=== PATIENT | female | born 1990 | race Caucasian/White ===

== ENCOUNTER → 2022-08-05 | Outpatient (CLI) | payer BC ==
--- NOTE | 2022-08-05 19:02 | CT ---
EXAMINATION TYPE: CT abdomen pelvis w con CT DLP: 764.30 mGycm, Automated exposure control for dose reduction was used. DATE OF EXAM: 08/05/2022 6:51 PM COMPARISON: CT abdomen pelvis most recent from CLINICAL INDICATION:Female, 32 years old with history of R10.32 LEFT LOWER QUADRANT PAIN R19.7 DIARRH EA; LLQ pain, diarrhea Stat hold and call TECHNIQUE: Axial CT of the abdomen and pelvis. Sagittal and coronal reformats were created on a [employer] workstation. Contrast used:100 mL of Isovue 300 with IV Contrast, Oral contrast used: with Oral Contrast FINDINGS: LOWER CHEST: Unremarkable ABDOMEN LIVER: Diffusely hypoattenuating parenchyma. GALLBLADDER AND BILE DUCTS: The gallbladder is surgically absent. PANCREAS: Unremarkable. SPLEEN: Small splenule is present. ADRENAL GLANDS: Unremarkable. KIDNEYS AND URETERS: No evidence of hydronephrosis or renal calculus. The ureters are unremarkable. PELVIS BLADDER: Unremarkable REPRODUCTIVE: Corpus luteum on the right noted. ABDOMEN & PELVIS STOMACH AND BOWEL: Moderate stool burden throughout the colon. No evidence of bowel obstruction. Appe ndix is normal. PERITONEUM: No evidence of pneumoperitoneum or free fluid. VASCULATURE: No evidence of aortic aneurysm. MUSCULOSKELETAL: No acute osseous abnormalities LYMPH NODES: No gross evidence for lymphadenopathy. SOFT TISSUE/ABDOMINAL WALL: Fat-containing umbilical hernia. IMPRESSION: 1. No evidence for acute intra-abdominal process. 2. Moderate stool burden in the colon. 3. Hepatic steatosis. 4. Fat-containing umbilical hernia.
== END | disposition home or self-care (01) ==
LOC: RADCTMAIN 16:49
PROVIDERS: ATTEND Family Medicine
DX: K76.0 Fatty (change of) liver, not elsewhere classified (principal); K42.9 Umbilical hernia without obstruction or gangrene
CPT/HCPCS: 74177; Q9967

== ENCOUNTER 2022-11-06 08:54 | Day surgery (SDC) | payer BC ==
[2022-11-04 15:06] VITALS: BMI 29.2
[~2022-11-06 08:54] MED LIST: LACTATED RINGERS 1,000 ML IV SCH; LIDOCAINE 1% (10MG/ML) FOR IV START INTRADERMA PRN
[2022-11-06 09:36] VITALS: RESP 16; TEMP 98.4
[2022-11-06] MEDS ORDERED: LIDOCAINE 2% INJ 20 MG/ML (2 ML VIAL) ONE (10:06)
[2022-11-06] MEDS ORDERED: PROPOFOL 10 MG/ML 20 ML VIAL IV ONE (10:06)
--- NOTE | 2022-11-06 10:27 | P.PCN ---
Date of Procedure: 11/06/22 Procedure(s) Performed: BRIEF HISTORY: Patient is a 32-year-old pleasant female scheduled for an elective colonoscopy as a part of evaluation of abdominal pain and change in bowel habits for the last 10 years duration. PROCEDURE PERFORMED: Colonoscopy. PREOPERATIVE DIAGNOSIS: Lower abdominal pain and change in bowel habits. IV sedation per Anesthesia. PROCEDURE: After informed consent was obtained, the patient, was brought into the endoscopy unit. IV sedation was administered by Anesthesia under continuous monitoring. Digital rectal examination was normal. Initially the Olympus CF-160 flexible video colonoscope was then inserted in the rectum, gradually advanced into the cecum without any difficulty. Careful examination was performed as the scope was gradually being withdrawn. Ileocecal valve and the appendiceal orifice were visualized and appeared normal. Prep was excellent. Terminal ileum was intubated and 20 cm visualized appeared normal Mucosa of the cecum, ascending colon, transverse colon, descending colon, sigmoid colon, and rectum appeared normal. Retroflexion was performed in the rectum and no lesions were seen. The patient tolerated the procedure well. IMPRESSION: Normal-appearing colon from rectum to cecum with no evidence of colorectal neoplasia . Normal-appearing terminal ileum. RECOMMENDATIONS: Findings of this examination were discussed with the patient as well as a family. She was advised to be a high-fiber diet and take fiber supplements a regular basis. Use osmotic laxatives as needed for the chronic constipation..
[2022-11-06 10:52] VITALS: BP 99/61; PULSE 71
== END 2022-11-06 11:33 | disposition home or self-care (01) ==
LOC: ORWHC2ENDO 08:54
PROVIDERS: ATTEND Internal Medicine Gastroenterology
DX: R19.4 Change in bowel habit (principal); R10.30 Lower abdominal pain, unspecified; F39 Unspecified mood [affective] disorder; Z79.899 Other long term (current) drug therapy
CPT/HCPCS: 84703; 45378; J2704; J2001

== ENCOUNTER 2023-10-30 00:08 | Inpatient (IN) | payer BC ==
[2023-10-30] MEDS ORDERED: TERBUTALINE 1 MG/ML VIAL SQ PRN (00:15)
[2023-10-30] MEDS ORDERED: METHYLERGONOVINE 0.2 MG/ML 1 ML AMP IM PRN ×2 (00:15→00:46)
[2023-10-30] MEDS ORDERED: LIDOCAINE 0.5% (PF) 5 MG/ML (50 ML SDV) SQ PRN (00:15)
[2023-10-30] MEDS ORDERED: AMPICILLIN 2,000 MG in SODIUM CHLORIDE 0.9% 100 ML IVPB STA (00:15)
[2023-10-30] MEDS ORDERED: CARBOPROST TROMETHAMINE 250 MCG/ML 1 ML AMP IM PRN ×2 (00:15→00:46)
[2023-10-30] MEDS ORDERED: miSOPROStoL 200 MCG TAB PO PRN ×2 (00:15→00:46)
[2023-10-30] MEDS ORDERED: TRANEXAMIC 1,000 MG/100ML-NACL 1,000 MG in EMPTY BAG 1 BAG IV PRN ×2 (00:15→00:46)
[2023-10-30] MEDS ORDERED: OXYTOCIN 10 UNIT/ML 1 ML VIAL IM PRN ×2 (00:15→00:46)
[2023-10-30 00:24] LABS: Basophils % (A) 0 %; Eosinophils # (A) 0.2 k/uL (0-0.7); Eosinophils % (A) 2 %; HCT 37.1 % (34.0-46.0); Lymphocytes # (A) 1.9 k/uL (1.0-4.8); Lymphocytes % (A) 17 %; MCH 32.8 pg (25.0-35.0); MCV 93.9 fL (80.0-100.0); Mean Platelet Volume 8.2; Monocytes # (A) 0.5 k/uL (0-1.0); Monocytes % (A) 5 %; Neutrophils # (A) 8.3 k/uL (1.3-7.7); Neutrophils % (A) 75 %; Platelet Count 207 k/uL (150-450); RBC 3.95 m/uL (3.80-5.40); RDW 13.5 % (11.5-15.5); WBC 11.1 k/uL (3.8-10.6)
[2023-10-30] MEDS: BETAMET ACET-BETAMETH SOD PHOS 6 MG/ML MDV IM SCH ×2 (00:29→20:29)
[2023-10-30] MEDS: LACTATED RINGERS 1,000 ML IV SCH ×2 (00:30→02:32)
[2023-10-30] MEDS ORDERED: CITRIC ACID-SODIUM CITRATE 15 ML CUP PO ONE (00:46)
--- NOTE | 2023-10-30 00:52 | P.HPOB ---
History of Present Illness H&P Date: 10/30/23 Chief Complaint: labor 33 year old presents at 32 weeks 4 days in active labor. Her cervix is 5/100/-2. She is elida every few minutes and heart tones are category 1. Fetus is in breech presentation. Review of Systems All systems: negative Constitutional: Denies chills, Denies fever Eyes: denies blurred vision, denies pain Ears, nose, mouth and throat: Denies headache, Denies sore throat Cardiovascular: Denies chest pain, Denies shortness of breath Respiratory: Denies cough Gastrointestinal: Denies abdominal pain, Denies diarrhea, Denies nausea, Denies vomiting Genitourinary: Denies dysuria, Denies hematuria Musculoskeletal: Denies myalgias Integumentary: Denies pruritus, Denies rash Neurological: Denies numbness, Denies weakness Psychiatric: Denies anxiety, Denies depression Endocrine: Denies fatigue, Denies weight change Past Medical History Past Medical History: GERD/Reflux Additional Past Medical History / Comment(s): MIGAINE HEADACHES, CERVICAL CANCER , History of Any Multi-Drug Resistant Organisms: None Reported Past Surgical History: Cholecystectomy Additional Past Surgical History / Comment(s): CERVICAL BIOPSY WITH FOLLOWUP, 4 WISDOM TEETH EXTRACTIONS , EGD Past Anesthesia/Blood Transfusion Reactions: No Reported Reaction, Motion Sickness Past Psychological History: Anxiety, Depression Smoking Status: Never smoker Past Alcohol Use History: None Reported Past Drug Use History: None Reported - Past Family History Mother Family Medical History: No Reported History Medications and Allergies Home Medications Medication Instructions Recorded Confirmed Type Vit No.179/Iron/Folic 1 tab PO DAILY 11/04/22 03/14/23 History [ Tablet] Sertraline [Zoloft] 100 mg PO DAILY 11/04/22 03/14/23 History Allergies Allergy/AdvReac Type Severity Reaction Status Date / Time No Known Allergies Allergy Verified 03/14/23 14:54 Exam Osteopathic Statement: *. No significant issues noted on an osteopathic structural exam other than those noted in the History and Physical/Consult. Intake and Output 10/29/23 10/29/23 10/30/23 14:59 22:59 06:59 Other: Weight 77.111 kg Heart: Regular rate and rhythm Lungs: Clear to auscultation bilaterally Abdomen: Soft, nontender Extremities: Negative Homans sign Results Result Diagrams: 12/16/23 00:14 Abnormal Lab Results - Last 24 Hours (Table) 10/30/23 Range/Units 00:14 WBC 11.1 H (3.8-10.6) k/uL Neutrophils # 8.3 H (1.3-7.7) k/uL Assessment and Plan (1) 32 weeks gestation of Current Visit: Yes Status: Acute Code(s): Z3A.32 - 32 WEEKS GESTATION OF SNOMED Code(s): 2874471 (2) labor in third trimester Current Visit: Yes Status: Acute Code(s): O60.03 - LABOR WITHOUT DELIVERY, THIRD TRIMESTER SNOMED Code(s): 2730398 (3) breech presentation in right sacroanterior position Current Visit: Yes Status: Acute Code(s): O32.1XX0 - MATERNAL CARE FOR BREECH PRESENTATION, UNSP SNOMED Code(s): 64440893 Plan: 1. primary low transverse 2. did give one dose of celestone
[2023-10-30] MEDS ORDERED: DEXAMETHASONE SOD PHOSPHATE 4 MG/ML 1 ML VIAL ONE (01:04)
[2023-10-30] MEDS ORDERED: KETOROLAC 15 MG/ML 1 ML VIAL ONE (01:04)
[2023-10-30] MEDS ORDERED: ONDANSETRON 4 MG/2 ML VIAL ONE (01:04)
[2023-10-30] MEDS ORDERED: MORPHINE SULFATE (PF) 0.3 MG/0.3 ML SYR ONE (01:04)
[2023-10-30] MEDS ORDERED: diphenhydrAMINE 25 MG CAP PO PRN (01:41)
[2023-10-30] MEDS ORDERED: diphenhydrAMINE 50 MG CAP PO PRN (01:41)
[2023-10-30] MEDS ORDERED: ZOLPIDEM 5 MG TAB PO PRN (01:41)
[2023-10-30] MEDS ORDERED: METOCLOPRAMIDE 5 MG/ML 2 ML VIAL IVP PRN (01:41)
[2023-10-30] MEDS ORDERED: diphenhydrAMINE 50 MG/ML 1 ML VIAL IVP PRN ×2 (01:41)
[2023-10-30] MEDS ORDERED: LANOLIN CREAM 5 GM TUBE TOPICAL PRN (01:41)
[2023-10-30] MEDS ORDERED: NALOXONE 0.4 MG/ML 1 ML VIAL IV PRN (01:41)
[2023-10-30] MEDS ORDERED: SIMETHICONE 80 MG CHEWABLE PO PRN (01:41)
[2023-10-30] MEDS ORDERED: ONDANSETRON 4 MG/2 ML VIAL IVP PRN (01:41)
[2023-10-30] MEDS ORDERED: OXYTOCIN 30 UNITS/500 ML NS 30 UNIT in SALINE 1 500ML.BAG IV SCH (01:45)
--- NOTE | 2023-10-30 01:45 | P.OP ---
Date of Procedure: 10/30/23 Preoperative Diagnosis: 1. at 32 weeks 4 days 2. active labor 3. breech Postoperative Diagnosis: same Procedure(s) Performed: Primary low transverse Anesthesia: spinal Surgeon: Darlin Sampson Outpatient Physical Therapist Assistant #1: Keri Camacho Estimated Blood Loss (ml): 254 IV fluids (ml): 200 Urine output (ml): 150 Pathology: other (Placenta) Condition: stable Disposition: floor Indications for Procedure: Patient came in elida every 2 minutes with her cervix being 5 cm dilated, her percent effaced, -2 station. heart tones were category 1. She was admitted to a room and then notified us that she was breech a few days ago. Ultrasound performed at bedside confirmed breech position and section was called. Operative Findings: Viable male in breech presentation Apgars and weight pending. Normal uterus, tubes, ovaries. Description of Procedure: Patient was taken to the operating room where spinal anesthesia was found be adequate. She was prepped and draped in normal sterile fashion in dorsal supine position with a leftward tilt. Pfannenstiel skin incision was made the scalpel and carried through to the underlying layer of fascia with the scalpel. Fascia was incised in midline and carried bilaterally with the Quinteros scissors. The superior aspect of the fascial incision was grasped with Que clamps elevated and the underlying rectus muscles dissected off with the Quinteros's. Attention was then turned to inferior aspect of same incision which in a similar fashion was grasped tented up and the underlying rectus muscles dissected off with the Quinteros's. The rectus muscles were the midline and the peritoneum was identified tented up and entered sharply with the scalpel. The incision was extended superiorly and inferiorly with good visualization of the bladder. The bladder blade was inserted and the vesicouterine peritoneum was incised the Metzenbaums then carried bilaterally and bladder flap created digitally. A low transverse incision was then made on the uterus with the scalpel. This was carried bilaterally and digital manner. Infant was Delivered in normal breech fashion, nose and mouth bulb suctioned, cord clamped and cut, handed off to waiting nurses. Apgars pending, weight pending. Placenta delivered manually, intact with three-vessel cord. The uterus is exteriorized and cleared of all clots and debris. The uterine incision was closed with 0 Vicryl in a running locked fashion. Second layer of the same sutures used in imbricating fashion to obtain excellent hemostasis. Bladder flap was then reapproximated using 2-0 Vicryl in a running fashion. Both ovaries and tubes appeared normal. The uterus was placed back into the abdomen. The peritoneum was reapproximated using 2-0 Vicryl in a running fashion. The muscles were reapproximated using 2- 0 Vicryl in interrupted fashion. The fascia was reapproximated using 0 Vicryl in a running fashion. The subcutaneous tissues closed with 3-0 Vicryl running fashion. The skin was closed chela. Patient tolerated the procedure well, sponge and instrument counts were correct times 2 and she was taken to the recovery room in stable condition.
[2023-10-30] MEDS: ACETAMINOPHEN TAB 500 MG TAB PO SCH ×4 (04:14→23:06)
[2023-10-30] MEDS ORDERED: AMPICILLIN 1,000 MG in SODIUM CHLORIDE 0.9% 50 ML IVPB SCH (04:15)
[2023-10-30] MEDS: KETOROLAC 15 MG/ML 1 ML VIAL IVP SCH ×4 (07:33→20:29)
[2023-10-30] MEDS: IBUPROFEN 600 MG TAB PO SCH ×3 (08:00→19:35)
[2023-10-30] MEDS ORDERED: SERTRALINE 50 MG TAB PO SCH (13:30)
[2023-10-30] MEDS: SENNOSIDES-DOCUSATE SODIUM 1 EACH TAB PO SCH ×2 (17:54→19:30)
[2023-10-30 19:47] VITALS: BP 93/56
[2023-10-31 00:40] VITALS: PULSE 66; RESP 16; TEMP 98.2
[2023-10-31] MEDS: IBUPROFEN 600 MG TAB PO SCH (03:04)
[2023-10-31] MEDS: ACETAMINOPHEN TAB 500 MG TAB PO SCH (05:00)
--- NOTE | 2023-10-31 05:10 | P.DS ---
Providers Date of admission: 10/30/23 00:16 Expected date of discharge: 10/31/23 Attending physician: Bautista Solis Primary care physician: Stated None - Discharge Diagnosis(es) (1) 32 weeks gestation of Current Visit: Yes Status: Resolved (2) labor in third trimester Current Visit: Yes Status: Resolved (3) breech presentation in right sacroanterior position Current Visit: Yes Status: Resolved (4) Status post primary low transverse section Current Visit: Yes Status: Acute Hospital Course: Patient presented in labor and breech presentation. She underwent a primary low transverse . Postoperative course was uneventful. She denies nausea, vomiting, chest pain, shortness of breath or calf pain. She is tolerating regular diet passing flatus and ambulating and voiding without difficulty. Patient will be discharged home postoperative day #1 in stable condition to follow-up in a few days for staple removal. Plan - Discharge Summary New Discharge Prescriptions: No Action Sertraline [Zoloft] 100 mg PO DAILY Vit No.179/Iron/Folic [ Tablet] 1 tab PO DAILY Discharge Medication List Vit No.179/Iron/Folic [ Tablet] 1 tab PO DAILY 11/04/22 [History] Sertraline [Zoloft] 100 mg PO DAILY 11/04/22 [History] Follow up Appointment(s)/Referral(s): Bautista Solis MD [STAFF PHYSICIAN] - 3 Days Discharge Disposition: HOME SELF-CARE
--- NOTE | 2023-10-31 23:56 | P.PN ---
Progress Note - Text Progress Note Date: 10/31/23 33 yo female s/p C/section with duramorph spinal POD#1 VAS 3/10 in severity localized to the abdominal region No motor deficits noted No back pain Ambulating and tolerating PO intake No pruritus Overall patient doing well.
== END 2023-10-31 06:15 | disposition home or self-care (01) | DRG 786 ==
LOC: FBPOP 00:08 → 4FBP 00:16
PROVIDERS: ADMIT Obstetrics & Gynecology; ATTEND Obstetrics & Gynecology
PROC: 10D00Z1 Extraction of Products of Conception, Low, Open Approach (ICD-10-PCS; principal; 2023-10-30 01:04)
DX: O32.1XX0 Maternal care for breech presentation, not applicable or unspecified (principal); O60.14X0 Preterm labor third trimester with preterm delivery third trimester, not applicable or unspecified; Z3A.32 32 weeks gestation of pregnancy; Z79.899 Other long term (current) drug therapy; Z85.41 Personal history of malignant neoplasm of cervix uteri; Z37.0 Single live birth
CPT/HCPCS: 85025; 86850; 86900; 86901; 99213

== ENCOUNTER → 2024-09-20 | Outpatient (CLI) | payer BC ==
--- NOTE | 2024-09-20 12:10 | CT ---
EXAMINATION TYPE: CT abdomen pelvis w con CT DLP: 1079 mGycm, Automated exposure control for dose reduction was used. DATE OF EXAM: 09/20/2024 11:40 AM COMPARISON: CT abdomen pelvis 08/05/2022 CLINICAL INDICATION:Female, 34 years old with history of R10.32 LEFT LOWER QUADRANT PAIN; LLQ abdomin al pain. TECHNIQUE: Standard CT of the abdomen and pelvis following the administration of 100 cc of Isovue 3 00 IV contrast material and oral contrast. Coronal and sagittal reformats were performed. FINDINGS: LOWER CHEST: Unremarkable ABDOMEN LIVER: 1.2 cm hyperdense lesion within the right hepatic lobe. Additional 2.2 cm hypodense lesion wit hin the left hepatic dome. These appear larger from prior exam. These demonstrate some internal enhan cement on delayed phase are most consistent with hemangiomas. GALLBLADDER AND BILE DUCTS: The gallbladder is surgically absent. No biliary ductal dilatation. PANCREAS: Unremarkable. SPLEEN: Subcentimeter hypodense focus within superior aspect of the spleen which is too small to manuel acterize but likely represents a hemangioma or cyst. ADRENAL GLANDS: Unremarkable. KIDNEYS AND URETERS: No evidence of hydronephrosis or renal calculus. The exam is symmetrically. Cont rast is demonstrated within both collecting systems on the delayed phase. PELVIS BLADDER: Unremarkable REPRODUCTIVE: Unremarkable. ABDOMEN & PELVIS STOMACH AND BOWEL: Stomach and duodenum are unremarkable. Enteric contrast reaches the descending col on. No focal wall thickening or surrounding inflammatory changes. The appendix is within normal limit s. Mild colonic stool burden. No evidence of bowel obstruction. PERITONEUM: No evidence of pneumoperitoneum or free fluid. VASCULATURE: No evidence of aortic aneurysm. MUSCULOSKELETAL: No acute osseous abnormalities LYMPH NODES: No evidence for lymphadenopathy. SOFT TISSUE/ABDOMINAL WALL: Tiny fat filled hernia. IMPRESSION: 1. No acute abdominal suspect process. 2. There are 2 hepatic lesions most consistent with benign hemangiomas. [facility], , 09/20/2024 12:07 PM
== END | disposition home or self-care (01) ==
LOC: RADCTMAIN 09:40
PROVIDERS: ATTEND Family Medicine
DX: R10.32 Left lower quadrant pain (principal); K76.9 Liver disease, unspecified
CPT/HCPCS: 74177; Q9967

== ENCOUNTER → 2024-10-13 | Outpatient (CLI) | payer BC ==
--- NOTE | 2024-10-13 13:56 | US ---
EXAMINATION TYPE: US pelvic complete DATE OF EXAM: 10/13/2024 COMPARISON: CT: 09/20/24 CLINICAL INDICATION: Female, 34 years old with history of R10.32 LEFT LOWER QUADRANT PAIN; LLQ pain s alison April 2023. Pt has had the Nexplanon since January 2024. . 1 TECHNIQUE: Transabdominal (TA). FINDINGS: Date of LMP: Pt has not had a period since the nexplanon EXAM MEASUREMENTS: Uterus: 5.9 x 4.3 x 2.5 cm Endometrial Stripe: 0.63 cm Right Ovary: 2.4 x 2.5 x 1.4 cm Left Ovary: 3.3 x 2.9 x 2.1 cm 1. Uterus: Anteverted wnl 2. Endometrium: wnl 3. Right Ovary: follicles seen 4. Left Ovary: follicles seen 5. Bilateral Adnexa: slightly limited due to overlying bowel gas 6. Posterior cul-de-sac: wnl Unremarkable anteverted uterus without focal lesion. Endometrium is within normal limits. Both ovarie s appear unremarkable with bilateral follicles identified. No free fluid. IMPRESSION: Unremarkable transabdominal pelvic ultrasound. [facility], , 10/13/2024 1:53 PM
== END | disposition home or self-care (01) ==
LOC: RADUSWWP 12:51
PROVIDERS: ATTEND Family Medicine
DX: R10.32 Left lower quadrant pain (principal)
CPT/HCPCS: 76856

== ENCOUNTER → 2025-03-05 | Outpatient (CLI) | payer BC ==
--- NOTE | 2025-03-05 11:42 | XR ---
EXAMINATION TYPE: XR chest 2V DATE OF EXAM: 03/05/2025 11:30 AM COMPARISON: None CLINICAL INDICATION: Female, 34 years old with history of R20.2 Paresthesia; [facility] TECHNIQUE: XR chest 2V Frontal and lateral views of the chest. FINDINGS: Lungs/Pleura: There is no evidence of pleural effusion, focal consolidation, or pneumothorax. Pulmonary vascularity: Unremarkable. Heart/mediastinum: Cardiomediastinal silhouette is unremarkable. Musculoskeletal: No acute osseous pathology. IMPRESSION: No acute cardiopulmonary disease/process. [facility], , 03/05/2025 11:39 AM
--- NOTE | 2025-03-05 11:43 | XR ---
EXAMINATION TYPE: XR thoracic spine 3V DATE OF EXAM: 03/05/2025 11:31 AM COMPARISON: None CLINICAL INDICATION: Female, 34 years old with history of R20.2 Paresthesia, pain TECHNIQUE: XR thoracic spine views of the spine in Frontal, swimmers and lateral projections. FINDINGS: No evidence of acute fracture. There is scattered multilevel disk space narrowing without loss of ve rtebral body height. There is normal alignment of the thoracic vertebral bodies. Scattered osteophyte formation along the anterior and lateral aspects of the vertebral bodies. Neural foramen are patent given limitations of this exam. Spinal canal appears patent. IMPRESSION: 1. No acute osseous pathology. 2. Mild multilevel degeneration changes of the spine. [facility], , 03/05/2025 11:40 AM
--- NOTE | 2025-03-05 11:43 | XR ---
EXAMINATION TYPE: XR cervical spine comp DATE OF EXAM: 03/05/2025 11:31 AM COMPARISON: None CLINICAL INDICATION: Female, 34 years old with history of R20.2 Paresthesia; [facility], pain TECHNIQUE: The cervical spine was imaged in frontal, lateral, odontoid and bilateral oblique. FINDINGS: The osseous structures show normal alignment without evidence of an acute fracture. Minimal osteophyt e formation and facet joint arthropathy. The intervertebral disk spaces are preserved. Pedicles are i ntact. Soft tissues are within normal limits. The odontoid appears intact. IMPRESSION: 1. No fracture or dislocation. 2. Mild degenerative disc disease changes of the cervical spine. [facility], , 03/05/2025 11:41 AM
== END | disposition home or self-care (01) ==
LOC: RADXRMAIN 10:49
PROVIDERS: ATTEND Family Medicine
DX: M50.30 Other cervical disc degeneration, unspecified cervical region (principal); M47.814 Spondylosis without myelopathy or radiculopathy, thoracic region; R20.2 Paresthesia of skin
CPT/HCPCS: 71046; 72050; 72070